=== PATIENT | male | born 1960 | race Caucasian/White ===

== ENCOUNTER → 2023-08-24 09:24 | Outpatient (REF) | payer OTHER, SELFPAY | LOC: RAD 09:24 | PROVIDERS: ATTENDING PHYSICIAN Otolaryngology; FAMILY PHYSICIAN Family Medicine | DX: K21.9 Gastro-esophageal reflux disease without esophagitis (principal); R13.12 Dysphagia, oropharyngeal phase | CPT/HCPCS: 74210 ==

== ENCOUNTER → 2023-09-19 08:04 | Outpatient (REF) | payer OTHER, SELFPAY | LOC: HWRAD 08:04 | PROVIDERS: ATTENDING PHYSICIAN Specialist; FAMILY PHYSICIAN Family Medicine | DX: R63.4 Abnormal weight loss (principal); R14.0 Abdominal distension (gaseous) | CPT/HCPCS: 74177; Q9967 ==

== ENCOUNTER → 2023-11-09 06:31 | Day surgery (SDC) | payer OTHER, SELFPAY | LOC: GI 06:31 | PROVIDERS: ATTENDING PHYSICIAN Specialist | DX: K22.70 Barrett's esophagus without dysplasia (principal); K21.00 Gastro-esophageal reflux disease with esophagitis, without bleeding; J02.9 Acute pharyngitis, unspecified | CPT/HCPCS: 43239; 88305 ==

== ENCOUNTER 2024-04-01 13:23 | Inpatient (IN) | payer OTHER, SELFPAY ==
[2024-03-30] VITALS (11 sets, daily range): BP systolic 114–181; BP diastolic 77–92; BMI 29.0; BMI 28.4
[2024-03-30 08:35] LABS: Glucose - Point of Care 91 mg/dl (70-99)
--- NOTE | 2024-03-30 08:45 | CON.NEURO ---
Consultation
Order
Date of Consultation: 03/30/24
Reason for Consult: Prehospital stroke alert called in at 8:20 AM
CC:numbness
HPI: This is a 63-year-old right-handed man who presented to [facility] on March 30, 2024 with sensory deficits. According to the patient he developed an acute left face arm and leg numbness around 7:10 AM today. The patient
states that he woke up around 7:00 earlier today and was reading a book at the symptoms onset. No reports of dysarthria, motor weakness, change in vision or headache.
ER VS: 181/92, 105
PDMP:Alprazolam 1 Mg�45 tabs filled in on 01/31/2024
CT head-mild diffuse cortical atrophy, no acute infarcts
PMH: hemochromatosis, DLP, diverticulosis hypothyroidism vitamin D deficiency, YONG, insomnia
PSH: tonsillectomy, left eye macular hole, bilateral cataract surgery
SH: ,
FH: [id number]
All:phenobarbital
ROS: Positive for left-sided numbness
General: Well developed. In no acute distress.
Cardio: Regular rate and rhythm without murmur. Extremities are without cyanosis or edema.
Neuro:
Mental Status: Alert, oriented to person, place, and date. Follows complex requests across the midline. No aphasia or hemineglect. Anxious
Cranial Nerves: . Pupils are equally round, surgical. EOMs full. Visual manzanares full to confrontation. No ptosis. No nystagmus. V1-V3 intact to light touch and pinprick bilaterally, symmetric. Face symmetric. Normal hearing AU. The palate
elevated well. SCMs and traps 5/5. Tongue midline. No dysarthria.
Motor: Normal bulk and tone. No pronator or arm drift. Strength 5/5 throughout. No clonus.
Sensory: Reduced light touch in the left face arm and leg. No extinction to DSS
Coordination: normal FFM. No dysmetria or tremor.
Gait: deferred
NIH score: I
Assessment and Plan:
I. Right thalamic syndrome. Not a candidate for IV TNK due to low NIH stroke score.
II. HTN
III. Hereditary hemochromatosis
-Neuro checks Q15 minutes. Will proceed with systemic thrombolysis if NIH score worsens.
-Telemetry monitoring.
- Plavix load
-Lipitor 40 mg QHS.
-Please check HbA1C, LDL.
-Brain MRI wo yong
-Case was discussed with ER team.
I personally reviewed all radiology and labs along with past medical records pertinent to current medical problems. Total time spent in patient care is 45 minutes.
Thank you for allowing us to participate in the care of this patient. We will continue to follow. Please do not hesitate to contact us with any questions or concerns.
Subjective/Objective
Subjective Data
Date of Service: March 30, 2024
Objective Data
Patient Allergies
phenobarbital Adverse Reaction (Verified 04/06/23 19:12)
Unknown
CVA Assessment
NIH Stroke Score
Level of Consciousness: 0 - Alert
LOC Questions: 0-Answers both correctly
LOC Commands: 0-Performs both correctly
Best Horizontal Gaze: 0-Normal
Visual Manzanares: 0=Normal, no visual loss
Facial Palsy: 0=Normal, symmetrical
Motor - Right Arm: 0=No drift 10 seconds
Motor - Left Arm: 0=No drift 10 seconds
Motor - Right Le-No drift 5 seconds
Motor - Left Le-No drift 5 seconds
Limb Ataxia: 0-Absent
Sensation: 1-Mild loss
Dysarthria: 0-Normal
Extinction and Inattention: 0-No abnormality
Tenecteplase Contraindications
IAT Contraindications: NIHSS < 6
Medications
-
Home Medications
�Medication �Instructions �Recorded
alprazolam 1 mg tablet 1.5 mg PO Q6HPRN PRN insomnia 07/18/12
cholecalciferol (vitamin D3) 50 2,000 unit PO DAILY 07/18/12
mcg (2,000 unit) tablet
levothyroxine 75 mcg tablet 75 mcg PO DAILY 07/18/12
ibuprofen 200 mg capsule (Advil 400 mg PO PRN PRN PAIN 11/01/13
Liqui-Gel)
--- NOTE | 2024-03-30 08:59 | ED.CVA ---
History of Present Illness
General
Chief Complaint: CVA/TIA Symptoms
Source: patient
Exam Limitations: none
Time Seen by Provider: 03/30/24 08:33
Onset of Stroke Symptoms
Onset of symptoms known: Yes
Date of onset of symptoms: 03/30/24
Time of onset of symptoms: 07:15
History of Present Illness
History of Present Illness:
63-year-old male sudden onset of left-sided sensory changes at about 715 this morning. Patient had woken up about 10 to 15 minutes prior in his normal state of health. Denies visual issues. [place] like his speech was possibly minimally off. No
gait issues. No obvious weakness. No headache. No history of same.
Past History
Past History
ED Past Medical History: Arrthythmia, Hypothyroidism and Other (hemachromatosis-goes every 6 weeks for blood draw); Negative Asthma, HTN, Hypercholesterolemia or NIDDM
ED Past Surgical History: Other
Social History
Tobacco: Former smoker
Alcohol: Daily (Vodka 1-2)
Personal:
Living: with family
Review of Systems
Review of Systems
All Other Systems: Not applicable
Respiratory: Reports no symptoms
Cardiac: Reports no symptoms
ABD/GI: Reports no symptoms
Phy Exam
Physical Exam
Physical Exam:
GENERAL: Alert and oriented in no apparent distress
EYE: Orbits normal.
NECK: Supple, no carotid bruit
ENT: Pharynx without erythema
CARDIAC: Regular rate and rhythm without any obvious murmurs.
LUNGS: Clear breath sounds,normal
ABDOMEN: Soft, without focal tenderness or distention
NEUROLOGICAL: Alert and oriented , cranial nerves II through XII intact. Speech normal. Extraocular muscles intact. No nystagmus. Eye confrontation normal. Slight drift of the left arm with mild pronation. Some incoordination left arm
[id number]. Some decreased sensory changes subjectively to the left arm leg and face. Slight decreased graphesthesia to the left hand.
SKIN: Warm and dry, no rash or lesion, no discoloration, skin intact.
MUSCULOSKELETAL: No edema,no deformity.Good color
PSYCH: Normal and appropriate interaction.
Scores
NIH Stroke Score
Level of Consciousness: 0 - Alert
LOC Questions: 0-Answers both correctly
LOC Commands: 0-Performs both correctly
Best Horizontal Gaze: 0-Normal
Visual Greenberg: 0=Normal, no visual loss
Facial Palsy: 0=Normal, symmetrical
Motor - Right Arm: 0=No drift 10 seconds
Motor - Left Arm: 1=Drift < 10 seconds
Motor - Right Le-No drift 5 seconds
Motor - Left Le-No drift 5 seconds
Limb Ataxia: 1-Present in one limb
Sensation: 1-Mild loss
Best Language: 0-No aphasia
Dysarthria: 0-Normal
Extinction and Inattention: 0-No abnormality
Total Score:: 3
Course
Orders/Labs/Results
Orders:
Orders
03/30/24 08:30
CT Head W/o Cont STROKE ALERT Urgent
Comment:
Reason For Exam: L sided numbness
03/30/24 08:32
Electrocardiogram (*1) Urgent
Reason for Study: Other
Other Reason for Exam: Possible Stroke
Bedside Glucose- Treatment ONCE
Cardiac Monitoring- Treatment ONCE
EKG- Treatment ONCE
IV Insert/Care/Rem.- Treatment PRN
Vital Signs As Directed
Frequency: Other
Weight As Directed
Frequency: Once
Comment: ZERO STRETCHER SCALE FOR ACCURATE WEIGHT
03/30/24 08:36
CT Head/Neck Ang STROKE ALERT Urgent
Comment:
Reason For Exam: left sided numbness started at 725am
03/30/24 09:17
Clopidogrel Bisulfate [Plavix] 300 mg PO NOW STA
03/30/24 09:25
Complete Blood Count/With Diff Urgent
Troponin I Urgent
03/30/24 09:26
Comprehensive Metabolic Panel Urgent
PTT Urgent
Prothrombin Time Urgent
03/30/24 09:52
MR Brain Without Contrast Routine
Comment:
Reason For Exam: CVA
Recent pill cam endoscopy?: No
03/30/24 11:00
0.9% Sodium Chloride 500 ml [Nss] 500 ml IV 100 mls/hr
03/30/24 11:14
Echo 2D MMode Color/Doppler Routine
Reason for Study: Thrombotic source for stroke-like sxs
03/30/24 11:37
Hemoglobin A1c [Glycohemoglobin (HgbA1c)] Routine
Lipid Profile [Cardiovascular Evaluation] Routine
03/30/24 12:00
0.9% Sodium Chloride 500 ml [Nss] 500 ml IV BOLUS
Thiamine Injection 100 mg IV DAILY
03/30/24 12:26
Admit/Transfer Patient As Directed
Co-Sign Provider:
Level of Care: Observation services
Assign to:: Telemetry
Physician / Group: jaimee
Diagnosis: CVA
Reason for Telemetry: CVA/TIA
Date to Stop Telemetry: 04/02/24
Time to Stop Telemetry: 11:00
PRN Pain Medication Management As Directed
May give lesser potent ordered pain med per pt: Yes
preference::
Protocol:: Medication orders for pain may be administered in a
manner that supports deferring to patient preference
when the pt is:
- Requesting an ordered lesser potent pain medication.
Least to most potent pain medications are defined
as: acetaminophen < NSAID < tramadol < opioids
(morphine, oxycodone, hydromorphone).
- Requesting a lesser dose of the same medication IF
ORDERED.
- Requesting a less intrusive route of administration
if both routes are prescribed by the provider (PO <
IV).
03/30/24 12:27
Code Status As Directed
Resuscitation Status: Full Code
03/30/24 13:42
Acetaminophen [Tylenol/Feverall] 650 mg RECTAL Q4HPRN PRN
Acetaminophen [Tylenol] 650 mg PO Q4HPRN PRN
03/30/24 13:42
Case Management Consult ONCE
Case Management Consult: Discharge Planning
Comment: stroke/tia
DIETARY CONSULT Routine
Reason for Consult: stroke/TIA
NEUROLOGY CONSULT Urgent
Consulting Provider: Gia Velasquez
Was physician already notified: Yes
Portainer Operator Urgent
Activity As Directed
Activity Level: As Tolerated
NIH Stroke Scale As Directed
Directions: Per protocol
Comment: every shift and with any change in condition or mental status
Neurological Checks As Directed
Frequency: q4h
Additional Instructions:: q4h x 24h upon admission to the floor, then qshift & with any change in condition
and mental status
Patient Education As Directed
Type: Stroke education packet
Comment: provide to patient and family
Pneumatic Compression Sleeves As Directed
Type: Thigh high
Swallow Screening CVA/TIA ONLY As Directed
Comment: NPO until swallowing screening completed
If patient FAILS swallow screening:: NPO, Speech Therapy consult, Aspiration Precautions
If patient PASSES swallow screening, diet:: Cholesterol Lowering
Above diet order entered?: Yes- passed screening
Vital Signs As Directed
Frequency: Per unit guidelines
Ot Eval And Treat Routine
Pt Eval And Treat Routine
Activity Level: As Tolerated
Speech Therapy Eval & Treat Routine
DX Deep Vein Thrombosis Video Routine
03/30/24 18:00
Atorvastatin [Lipitor] 40 mg PO QPM
03/31/24 06:00
Basic Metabolic Panel IN AM
Complete Blood Count/No Diff IN AM
Levothyroxine [Synthroid] 75 mcg PO DAILY@0600
03/31/24 08:00
Aspirin Chewable [Low Strength Aspirin] 81 mg PO DAILY
Clopidogrel Bisulfate [Plavix] 75 mg PO DAILY
04/02/24 11:00
DC Protocol for Telemetry ONCE
Abnormal Lab Results
03/30/24 03/30/24
09:26
MCH 31.6 H pg
(27.0-31.0)
Monocytes % 9.9 H %
(1.7-9.3)
Carbon Dioxide 21 L mmol/L
(22-30)
Glucose 101 H mg/dl
(70-99)
03/30/24 09:25
03/30/24 09:26
Vital Signs
Initial and Last Documented VS:
Initial Vital Signs
Temp Pulse Resp BP Pulse Ox
98.0 F 105 16 181/92 97
03/30/24 08:41 03/30/24 08:41 03/30/24 08:41 03/30/24 08:41 03/30/24 08:41
Last Documented Vital Signs
Temp Pulse Resp BP Pulse Ox
99.1 F 98 20 132/85 98
03/30/24 13:49 03/30/24 13:49 03/30/24 13:49 03/30/24 13:49 03/30/24 13:49
*Radiology
Radiology exam reviewed: radiology read reviewed (Negative head CT. Negative CT angio)
*Critical Care Note
Total Time (30-74mins, 75-104mins- exclusive of procedures): 35
Update Note
Update Note:
Neurology involved from the initial status. Prehospital stroke alert had been called. I noted some mild motor changes that he apparently did not have. Neurology was recalled and is currently in the room. Lengthy discussion multiple times of
thrombolytics versus holding on thrombolytics. Currently feels the disability is mild enough that it would not be worth the risk of intracranial bleed. However he will be watched closely over the next few hours.
ED Attending Note
-
Portions of this chart may have been created with voice recognition software.� Occasional wrong word or��sound alike� substitutions may have occurred due to the inherent limitations of voice recognition software.
Discharge Plan
Departure
Patient Disposition: Admit
Date of Disposition: 03/30/24
Time of Disposition: 09:21
Presentation/result/management discussed w/ accepting MD/DO: Neurology
Discharge Problem:
Acute CVA
Interventions
Interventions:
*Risk Screen - Suicide Last Done: 03/30/24 08:41
*General Assessment Last Done: 03/30/24 08:41
*Neglect/Abuse Screening Last Done: 03/30/24 08:41
ED- Fall Risk Assessment Last Done: 03/30/24 08:41
*ED COVID-19 Vaccine History Last Done: 03/30/24 08:41
*Nursing Disposition Last Done: 03/30/24 13:24
ED- Pulmonary Assessment Last Done: 03/30/24 11:07
ED- Neurological Assessment Last Done: 03/30/24 10:58
ED- Cardiac Assessment Last Done: 03/30/24 10:58
ED Swallowing Screen Last Done: 03/30/24 08:41
Discharge Date and Time
Discharge Date/Time: 03/30/24 13:25
--- NOTE | 2024-03-30 09:27 | W.PN.UPDATE ---
Update Note
Progress Note Update
Mr. Andrews was reexamined at 9:15 am. His NIH score is 3(hemisensory, dysmetria and a mild PD.
Will continue monitoring.
No systemic thrombolysis.
The patient and his family are updated and in agreement.
[2024-03-30] MEDS: PLAVIX 300 MG PO (09:31)
[2024-03-30 09:33] LABS: % Basophils 0.8 % (0-2); % Eosinophils 2.2 % (0-6); % Immature Granulocytes 0.2 % (0-0.5); % Lymphocytes 22.8 % (20.5-51.1); % Monocytes 9.9 % (1.7-9.3); % Neutrophils 64.1 % (42.2-75.2); Absolute Eosinophils 0.1 10^3/uL (0-0.7); Absolute Lymphocytes 1.2 10^3/uL (1.2-3.4); Absolute Monocytes 0.5 10^3/uL (0.1-0.6); Absolute Neutrophils 3.2 10^3/uL (1.4-6.5); Hematocrit 44.9 % (39.0-52.0); Mean Corp Hgb Conc. 35.6 g/dL (33.0-37.0); Mean Corpuscular Hgb 31.6 pg (27.0-31.0); Mean Corpuscular Volume 88.6 fL (80.0-94.0); Mean Platelet Volume 10.3 fL (7.4-10.4); Nucleated Red Blood Cells % 0 % (-); Platelet Count 206 10^3/uL (130-400); Red Blood Cell Count 5.07 10^6/uL (4.70-6.10); Red Cell Dist. Width 12.3 % (11.5-14.5)
[2024-03-30 09:43] LABS: INR 1.07; PT 13.7 Sec (11.4-14.6)
[2024-03-30 09:44] LABS: APTT 31.1 Sec (23.4-35.0)
[2024-03-30 09:52] LABS: ALT (SGPT) 27 U/L (0-50); AST (SGOT) 31 U/L (17-59); Albumin 4.4 g/dl (3.5-5.0); Alkaline Phosphatase 66 U/L (38-126); Blood Urea Nitrogen 17 mg/dl (9-20); Calcium 9.5 mg/dl (8.4-10.2); Carbon Dioxide 21 mmol/L (22-30); Chloride 104 mmol/L (98-107); Estimated Creatinine Clearance 76 ml/min; Glucose 101 mg/dl (70-99); Potassium 4.3 mmol/L (3.5-5.1); Sodium 138 mmol/L (135-145); Total Protein 6.8 g/dl (6.3-8.2); eGFR > 60.00
--- NOTE | 2024-03-30 10:02 | W.PN.UPDATE ---
Update Note
Progress Note Update
Mr. Andrews was seen an examined. His family is at bedside. He reports improvement of tongue numbness and reports no weakness in the left arm and hand. NIH is 2(hemisensory and L dysmetria).
Tele-tachycardic, regular
Plan: continue neuro checks start IVF.
[2024-03-30 10:03] LABS: Troponin I < 0.012 ng/ml
[2024-03-30] MEDS: NSS 500 IV ×4 (10:23→21:38)
--- NOTE | 2024-03-30 12:02 | HPS.HSE ---
Addendum entered and electronically signed by Jose Urias MD 03/30/24 13:44:
I saw and examined the patient.
The HOUSING ASSISTANT or PA's note was reviewed and I agree with the note.
Comment: 63-year-old male presents with left-sided facial droop and left facial, left upper extremity, and left lower extremity paresthesias.
114/80, 95, 15, 98.1 �F, 99% on room air
Gen: NAD, AAOx3.
Eyes: EOMI, PERRLA, no scleral icterus.
Neck: supple.
CV: RRR, +S1/S2, no m/r/g.
Resp: CTAB, no rales, wheezes, or rhonchi.
Abd: +BS, soft, NT, ND
Skin: No rashes.
Neuro: mild L-facial droop, decrease sensation to touch in V1-V3 distribution of the face and left foot
Psych: Normal mood and affect.
Lab Results
03/30/24 03/30/24 03/30/24
08:34 09:25 09:26
WBC 5.0
RBC 5.07
Hgb 16.0
Hct 44.9
MCV 88.6
MCH 31.6 H
MCHC 35.6
RDW 12.3
Plt Count 206
MPV 10.3
Abs Immat Gran (auto) 0.0
Absolute Neuts (auto) 3.2
Absolute Lymphs (auto) 1.2
Absolute Monos (auto) 0.5
Absolute Eos (auto) 0.1
Absolute Basos (auto) 0.0
Immature Gran % 0.2
Neutrophils % 64.1
Lymphocytes % 22.8
Monocytes % 9.9 H
Eosinophils % 2.2
Basophils % 0.8
Nucleated RBC % 0
PT 13.7
INR 1.07
APTT 31.1
Sodium 138
Potassium 4.3
Chloride 104
Carbon Dioxide 21 L
BUN 17
Creatinine 1.1
Estimated Creat Clear 76
eGFR > 60.00
Glucose 101 H
Hemoglobin A1c
Calcium 9.5
Total Bilirubin 1.0
AST 31
ALT 27
Alkaline Phosphatase 66
Troponin I < 0.012
Total Protein 6.8
Albumin 4.4
Triglycerides
Total Cholesterol
LDL Cholesterol, Calc
VLDL Cholesterol, Calc
HDL Cholesterol
POC Glucose 91
03/30/24
11:37
WBC
RBC
Hgb
Hct
MCV
MCH
MCHC
RDW
Plt Count
MPV
Abs Immat Gran (auto)
Absolute Neuts (auto)
Absolute Lymphs (auto)
Absolute Monos (auto)
Absolute Eos (auto)
Absolute Basos (auto)
Immature Gran %
Neutrophils %
Lymphocytes %
Monocytes %
Eosinophils %
Basophils %
Nucleated RBC %
PT
INR
APTT
Sodium
Potassium
Chloride
Carbon Dioxide
BUN
Creatinine
Estimated Creat Clear
eGFR
Glucose
Hemoglobin A1c 5.0
Calcium
Total Bilirubin
AST
ALT
Alkaline Phosphatase
Troponin I
Total Protein
Albumin
Triglycerides 63
Total Cholesterol 176
LDL Cholesterol, Calc 81
VLDL Cholesterol, Calc 12
HDL Cholesterol 83
POC Glucose
CTA head/neck: Normal
CT head: There are no focal or acute intracranial abnormalities. There is mild diffuse cortical atrophy.
L-sided facial droop, likely acute CVA:
-check MRI brain and echo
-cont ASA/Plavix/statin
-Monitor on telemetry
Original Note:
Family Physician
-
Family Physician: Garret Rodriguez
Chief Complaint
-
left sided numbness
History of Present Illness
63-year-old male with PMH for hypothyroidism, hemochromatosis, hypothyroidism presented to us with left sided numbness, weakness since this morning. noticed left sided facial droop. denied slurred speech. denied blurry vision, headache, dizzy.
denied chest pain, sob. denied abdominal pain,n,v,d.denied dysuria or hematuria. patient stated it feels like something stuck in his throat since he took the pills.
head CT and CTA with no acute findings. took asa this morning. patient received Plavix. admitting for further management.
Medical History
Past Medical History
Past Medical History: Reports Other
Additional Past Medical History:
colon polyp
diverticulosis
hypothyroidism
anxiety
insomnia
hemochromatosis
Past Surgical History: Reports Other
Additional Past Surgical History:
tonsillectomy
b/l cataract surgery
Social History
Tobacco: Former Smoker
Alcohol: Occasional
Drug: None
Personal:
Living: With Family
Employment: Employed
Family History
Family History: Not pertinent
Allergies / Home Medications
Allergies reflects when Allergies were last updated in [employer].
Home Medications with original date entered in [employer]
Allergy/Medication List:
Allergies
Allergy/AdvReac Type Severity Reaction Status Date / Time
phenobarbital AdvReac Unknown Verified 04/06/23 19:12
Home Medications
alprazolam 1 mg tablet 0.5 - 1.5 mg PO DAILYPRN PRN anxiety 07/18/12
levothyroxine 75 mcg tablet 75 mcg PO DAILY 07/18/12
ibuprofen 200 mg capsule (Advil Liqui-Gel) 400 mg PO DAILYPRN PRN mild pain 11/01/13
calcium 200 mg (as carbonate)-magnesium 100 mg chewable tablet (Miah-Mag) 200 tab PO DAILYPRN PRN constipation 03/30/24
cholecalciferol (vitamin D3) 10 mcg/mL (400 unit/mL) oral drops 30 mcg PO DAILYPRN PRN supplement 03/30/24
cholecalciferol (vitamin D3) 125 mcg (5,000 unit) tablet (Vitamin D3) 125 mcg PO Q48H 03/30/24
zinc sulfate 50 mg zinc (220 mg) tablet 50 mg PO DAILY 03/30/24
Review of Systems
-
Constitutional: Reports No Symptoms
EENT: Reports No Symptoms
Respiratory: Reports No Symptoms
Cardiac: Reports No Symptoms
Abdomen/GI: Reports No Symptoms
: Reports No Symptoms
Musculoskeletal: Reports No Symptoms
Skin: Reports No Symptoms
Neurological: Reports No Symptoms, Weakness and Numbness (left sided)
Endocrine: Reports No Symptoms
Hematologic/Lymphatic: Reports No Symptoms
Psych: Reports No Symptoms
Physical Exam
Vital Signs
Vital Signs
Temp Pulse Resp BP Pulse Ox
98.1 F 98 11 150/86 100
03/30/24 11:08 03/30/24 11:08 03/30/24 11:08 03/30/24 11:08 03/30/24 11:08
Physical Exam
General: Well Developed, Well Nourished and No Apparent Distress
HEENT: NormoCephalic, Moist mucous membranes and Atraumatic
Respiratory: Clear
Cardiac: S1/S2 and Regular Rhythm; No Murmur or Rub
GI: Soft, Non Tender, Non Distended and Normal Bowel Sounds; No Organomegaly
Rectal: Deferred by Provider
Musculoskeletal: No Clubbing, No Cyanosis and No Edema
Skin: No Rash
Neuro: Nonfocal/grossly intact and Facial Droop (left facial droop. left sided numbness)
Psych: Calm
Laboratory Results
-
03/30/24 09:25
03/30/24 09:26
Laboratory Results
PT 13.7 Sec (11.4-14.6) 03/30/24 09:26
INR 1.07 03/30/24 09:26
APTT 31.1 Sec (23.4-35.0) 03/30/24 09:
Total Bilirubin 1.0 mg/dl (0.2-1.3) 03/30/24 09:
AST 31 U/L (17-59) 03/30/24 09:
ALT 27 U/L (0-50) 03/30/24 09:26
Alkaline Phosphatase 66 U/L (38-126) 03/30/24 09:26
Troponin I < 0.012 ng/ml 03/30/24 09:25
Data Reviewed
-
CT Scan: Report Reviewed by me
Lab Data: Labs Reviewed by me
Impression/Plan
-
#left sided numbness, weakness r/o acute CVA
-stroke protocol
-obtain MRI and ECHO
-statin,asa,Plavix
-obtain A1c,lipid profile
-PT/OT consult
-neuro consult
-head neck CT normal
-CT head with no focal or acute intracranial abnormalities.There is mild diffuse cortical atrophy
#hypothyroidism
-levothyroxine continued
#DVT prophylaxis
-SCD
#CODE status
-full code
[2024-03-30 12:04] LABS: HDL Cholesterol 83 mg/dl; LDL Cholesterol, Calculated 81 mg/dl; Total Cholesterol 176 mg/dl (50-199); Triglyceride 63 mg/dl (10-149); Very Low Density Lipoprotein 12 mg/dl (0-30)
--- NOTE | 2024-03-30 13:50 | PTCARENOTE ---
Pt received from ED. Pt ambulated from the stretcher to the unit bed with supervision. NIH 2. Decreased sensation to left face and left upper arm. Ataxia on the left upper extremity. Pt is AAOx3. Resting in bed, feeling anxious. Order requested for
Xanax. Pt had a recent left sided oral surgery and is concerned that this is causing his symptoms. Dr Urias made aware of the pt concern. Pt waiting for a brain MRI.
--- NOTE | 2024-03-30 15:27 | PTOTSP ---
Speech Pathology
Clinical Swallow Evaluation
63M with L sided numbness admitted to r/o CVA p/w clinical s/s of at least a mildly impaired oropharyngeal swallow due to current L sided facial numbness and pain, as well as endorsement of globus sensation with regular solids and pills.
Recommend:
1. Regular textures (IDDSI 7), thin liquids (IDDSI 0)
2. Meds as tolerated, recommended whole in puree to reduce s/s of pill dysphagia
3. Safe swallowing strategies: cyclic ingestion/alternating bites and sips, opting for softer foods at this time to assist w/ chew and reduce globus sensation, slow rate, small bites
4. Aspiration and reflux precautions
5. FRUIT PRESS OPERATOR service to follow up and assess diet level tolerance given pending MRI results, as well as train safe swallowing strategies given c/o frequent globus sensation
[2024-03-30] MEDS: LIPITOR 40 MG PO (17:35)
[2024-03-30] MEDS: XANAX 1 MG PO (20:23)
[2024-03-31] VITALS (7 sets, daily range): BP systolic 118–144; BP diastolic 72–85; PULSE 80
[2024-03-31] MEDS: NSS 500 IV (03:24)
[2024-03-31] MEDS: SYNTHROID 75 MCG PO (05:33)
--- NOTE | 2024-03-31 08:12 | W.PN.HOSP.TC ---
Today's Communication/Plan
-
see bold
Assessment / Plan
Assessment / Plan
Gen: NAD, awake and alert
Eyes: EOMI, PERRLA, no scleral icterus.
Neck: supple.
CV: Remains RRR, +S1/S2, no m/r/g.
Resp: CTAB, no rales, wheezes, or rhonchi.
Abd: +BS, soft, NT, ND
Skin: No rashes.
Neuro: No L-facial droop, decreased sensation to touch in V1-V3 distribution of the face
Psych: Normal mood and affect.
CTA head/neck: Normal
CT head: There are no focal or acute intracranial abnormalities. There is mild diffuse cortical atrophy.
L-sided facial droop, likely acute CVA:
-check MRI brain and echo
-cont ASA/Plavix/statin
-Monitor on telemetry (SR, read by me)
-neuro following
Hypothyroidism: Continue Levoxyl
FULL/SCDs
Anticipated Discharge: Within 24 hours
Subjective/Interval History
-
Date of Service: March 31, 2024
Still with left facial numbness and tingling in the left hand. No further numbness in the left foot
Objective Data
-
Labs:
Laboratory Results
03/31/24
07:53
WBC Pending
Hgb Pending
Hct Pending
Plt Count Pending
Sodium Pending
Potassium Pending
Chloride Pending
Carbon Dioxide Pending
BUN Pending
Creatinine Pending
Glucose Pending
Calcium Pending
Vital Signs:
Vital Signs
Temp Pulse Resp BP Pulse Ox
97.7 F 74 20 118/74 97
03/31/24 03:40 03/31/24 03:40 03/31/24 03:40 03/31/24 03:40 03/31/24 03:40
I&O
03/30/24 03/31/24 04/01/24
06:59 06:59 06:59
Intake Total 1919
Output Total 1230 / 1230
Balance 690 / 690
[2024-03-31] MEDS: LOW STRENGTH ASPIRIN 81 MG PO (08:16)
[2024-03-31] MEDS: NSS 1000 IV (08:16)
[2024-03-31] MEDS: PLAVIX 75 MG PO (08:16)
[2024-03-31 08:29] LABS: Hematocrit 39.6 % (39.0-52.0); Hemoglobin 14.7 g/dL (13.0-18.0); Mean Corp Hgb Conc. 37.1 g/dL (33.0-37.0); Mean Corpuscular Hgb 33.2 pg (27.0-31.0); Mean Corpuscular Volume 89.4 fL (80.0-94.0); Mean Platelet Volume 10.5 fL (7.4-10.4); Platelet Count 156 10^3/uL (130-400); Red Blood Cell Count 4.43 10^6/uL (4.70-6.10); Red Cell Dist. Width 12.1 % (11.5-14.5); White Blood Cell Count 4.6 10^3/uL (4.8-10.8)
[2024-03-31 08:47] LABS: Blood Urea Nitrogen 10 mg/dl (9-20); Calcium 8.9 mg/dl (8.4-10.2); Carbon Dioxide 20 mmol/L (22-30); Chloride 109 mmol/L (98-107); Estimated Creatinine Clearance 83 ml/min; Glucose 98 mg/dl (70-99); Potassium 4.2 mmol/L (3.5-5.1); Sodium 140 mmol/L (135-145); eGFR > 60.00
--- NOTE | 2024-03-31 14:51 | W.PN.NEURO.1 ---
Today's Communication / Plan
-
.
Subjective/Objective
Subjective Data
Date of Service: March 31, 2024
Mr. Andrews states that his left lower leg and tongue numbness have resolved and the left arm/hand and facial numbness have improved. No reports of headache, change in strength. He was able to ambulate with no difficulties.
The patient has been normotensive with no therapy.
Brain MRI showed an acute/subacute R thalamic infarct, increased signal on the FLAIR and T2-weighted images in the periventricular and subcortical white matter bilaterally as well as cortical and cerebellar atrophy
LDL 81, HbA1C 5
PMH: hemochromatosis, DLP, diverticulosis hypothyroidism vitamin D deficiency, YONG, insomnia
PSH: tonsillectomy, left eye macular hole, bilateral cataract surgery
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
FH: [id number]
All:phenobarbital
ROS: Positive for left-sided numbness, neg for chest pain, palpitations, YEUNG, leg edema.
General: Well developed. In no acute distress.
Cardio: Regular rate and rhythm without murmur. Extremities are without cyanosis or edema.
Neuro:
Mental Status: Alert, oriented to person, place, and date. Follows complex requests across the midline. No aphasia or hemineglect. Anxious
Cranial Nerves: . Pupils are equally round, surgical. EOMs full. Visual manzanares full to confrontation. No ptosis. No nystagmus. V1-V3 intact to light touch and pinprick bilaterally, symmetric. Face symmetric. Normal hearing AU. The palate
elevated well. SCMs and traps 5/5. Tongue midline. No dysarthria.
Motor: Normal bulk and tone. No pronator or arm drift. Strength 5/5 throughout. No clonus.
Sensory: Reduced light touch in the left face arm and face No extinction to DSS
Coordination: normal FFM. No dysmetria or tremor.
Gait: deferred
NIH score: 1
Assessment and Plan:
I. Acute/subacute right thalamic stroke. 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
II. HTN
III. Hereditary hemochromatosis
-Telemetry monitoring.
-ASA 81mg QD lifelong
-Continue Plavix 75 mg QD for 21 days
-Lipitor 40 mg QHS.
-ua tox
-TTE
-Case was discussed with patient's family
I personally reviewed all radiology and labs along with past medical records pertinent to current medical problems. Total time spent in patient care is 35 minutes.
Thank you for allowing us to participate in the care of this patient. We will continue to follow. Please do not hesitate to contact us with any questions or concerns.
Objective Data
Vital Signs
Temp Pulse Resp BP Pulse Ox
36.7 C 85 16 124/72 96
03/31/24 08:15 03/31/24 08:15 03/31/24 08:15 03/31/24 08:15 03/31/24 08:15
Lab Results
03/31/24 07:53
03/31/24 07:53
PT 13.7 Sec (11.4-14.6) 03/30/24 09:26
INR 1.07 03/30/24 09:26
APTT 31.1 Sec (23.4-35.0) 03/30/24 09:26
Sodium 140 mmol/L (135-145) 03/31/24 07:53
Potassium 4.2 mmol/L (3.5-5.1) 03/31/24 07:53
BUN 10 mg/dl (9-20) 03/31/24 07:53
Glucose 98 mg/dl (70-99) 03/31/24 07:53
Calcium 8.9 mg/dl (8.4-10.2) 03/31/24 07:53
LDL Cholesterol, Calc 81 mg/dl 03/30/24 11:37
Patient Allergies
phenobarbital Adverse Reaction (Verified 04/06/23 19:12)
Unknown
Vital Signs and Labs
-
Vital Signs and Labs:
Vital Signs
Temp Pulse Resp BP Pulse Ox
36.7 C 85 16 124/72 96
03/31/24 08:15 03/31/24 08:15 03/31/24 08:15 03/31/24 08:15 03/31/24 08:15
Lab Results
03/31/24 07:53
03/31/24 07:53
PT 13.7 Sec (11.4-14.6) 03/30/24 09:26
INR 1.07 03/30/24 09:26
APTT 31.1 Sec (23.4-35.0) 03/30/24 09:26
Sodium 140 mmol/L (135-145) 03/31/24 07:53
Potassium 4.2 mmol/L (3.5-5.1) 03/31/24 07:53
BUN 10 mg/dl (9-20) 03/31/24 07:53
Glucose 98 mg/dl (70-99) 03/31/24 07:53
Calcium 8.9 mg/dl (8.4-10.2) 03/31/24 07:53
LDL Cholesterol, Calc 81 mg/dl 03/30/24 11:37
Medications
-
Medications:
Generic Name Dose Route Start Last Admin
Trade Name Freq PRN Reason Stop Dose Admin
Acetaminophen 650 mg 03/30/24 13:42
Acetaminophen 650 Mg Rectal Suppository RECTAL 04/27/24 13:41
Q4HPRN PRN
CRUZ, mild pain, or temp >100.4F
Acetaminophen 650 mg 03/30/24 13:42
Acetaminophen 325 Mg Tablet PO 04/27/24 13:41
Q4HPRN PRN
CRUZ, mild pain, or temp >100.4F
Alprazolam 1 mg 03/30/24 14:06 03/30/24 20:23
Alprazolam 1 Mg Tablet PO 04/27/24 14:05 1 mg
DAILYPRN PRN Administration
anxiety
Aspirin 81 mg 03/31/24 08:00 03/31/24 08:16
Aspirin 81 Mg Chewable Tablet PO 04/28/24 07:59 81 mg
DAILY MOISÉS Administration
Atorvastatin Calcium 40 mg 03/30/24 18:00 03/30/24 17:35
Atorvastatin (Lipitor) 40 Mg Tablet PO 04/27/24 17:59 40 mg
QPM MOISÉS Administration
Clopidogrel Bisulfate 75 mg 03/31/24 08:00 03/31/24 08:16
Clopidogrel 75 Mg Tablet PO 04/28/24 07:59 75 mg
DAILY MOISÉS Administration
Levothyroxine Sodium 75 mcg 03/31/24 06:00 03/31/24 05:33
Levothyroxine 75 Mcg Tablet PO 04/28/24 05:59 75 mcg
DAILY@0600 MOISÉS Administration
Home Medications
-
Home Medications
alprazolam 1 mg tablet 0.5 - 1.5 mg PO DAILYPRN PRN anxiety 07/18/12
levothyroxine 75 mcg tablet 75 mcg PO DAILY Thyroid 07/18/12
ibuprofen 200 mg capsule (Advil Liqui-Gel) 400 mg PO DAILYPRN PRN mild pain 11/01/13
calcium 200 mg (as carbonate)-magnesium 100 mg chewable tablet (Miah-Mag) 200 tab PO DAILYPRN PRN constipation 03/30/24
cholecalciferol (vitamin D3) 10 mcg/mL (400 unit/mL) oral drops 30 mcg PO DAILYPRN PRN supplement 03/30/24
cholecalciferol (vitamin D3) 125 mcg (5,000 unit) tablet (Vitamin D3) 125 mcg PO Q48H Supplement 03/30/24
zinc sulfate 50 mg zinc (220 mg) tablet 50 mg PO DAILY Supplement 03/30/24
--- NOTE | 2024-03-31 15:22 | PTOTSP ---
ST Acute Care Evaluation & Follow-Up
Cognitive Linguistic Evaluation: Pt presents with speech, language, and cognitive linguistic function that are within functional limits for his age and education. No skilled speech or language tx indicated at this time.
Dysphagia Tx: Pt presents with oropharyngeal parameters that are WFL. No overt s/s of penetration or aspiration noted at bedside. 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 Education provided.
Recommendations:
- Continue with regular solids, thin liquids, meds as tolerated (consider whole in puree).
- General aspiration precautions and reflux precautions.
- No skilled HARDNESS TESTER services deemed warranted at this time for speech, language, cognitive function, or swallowing.
- F/u with GI as OP for esophageal dysfunction and intolerance of PPI previously RX.
[2024-03-31] MEDS: LIPITOR 40 MG PO (17:07)
[2024-03-31 18:24] LABS: Amphetamines Negative (Negative); Barbiturates Negative (Negative)
[2024-03-31 18:25] LABS: Benzodiazepines Positive (Negative); Buprenorphine Negative (Negative); Cocaine Negative (Negative); Marijuana Negative (Negative); Methadone Negative (Negative); Methamphetamines Negative (Negative); Opiates Negative (Negative); Phencyclidine Negative (Negative); Tricyclic Antidepressants Negative (Negative)
[2024-03-31 18:37] LABS: Fentanyl, Urine Negative (Negative)
[2024-03-31] MEDS: XANAX 1 MG PO (21:57)
[2024-04-01 03:37] VITALS: BP 122/83
[2024-04-01] MEDS: SYNTHROID 75 MCG PO (06:12)
[2024-04-01 08:17] VITALS: BP 146/84
[2024-04-01] MEDS: PLAVIX 75 MG PO (08:40)
[2024-04-01] MEDS: LOW STRENGTH ASPIRIN 81 MG PO (08:40)
--- NOTE | 2024-04-01 09:35 | W.PN.HOSP.TC ---
Addendum entered and electronically signed by Jose Urias MD 04/01/24 15:01:
Total time spent on d/c = 31 min. This included today's physical exam, progress note, review of laboratory and diagnostic data, preparation of discharge documents and prescriptions, and discussions about the pt's hospital course and discharge plan
with the patient and other medical nurse involved in the patient's care.
Original Note:
Today's Communication/Plan
-
d/c after echo
Assessment / Plan
Assessment / Plan
Gen: NAD, awake and alert
Eyes: EOMI, PERRLA, no scleral icterus.
Neck: supple.
CV: continues to remain RRR, +S1/S2, no m/r/g.
Resp: remains CTAB, no rales, wheezes, or rhonchi.
Abd: +BS, soft, NT, ND
Skin: No rashes.
Neuro: remains No L-facial droop, decreased sensation to touch in V1-V3 distribution of the face
Psych: Normal mood and affect.
CTA head/neck: Normal
CT head: There are no focal or acute intracranial abnormalities. There is mild diffuse cortical atrophy.
MRI brain: 12 mm subacute nonhemorrhagic right thalamic infarct
Acute R-thalamic CVA:
-cont ASA, plavix x 21 days, statin
-check echo
-neuro following
Hypothyroidism: Continue Levoxyl
FULL/SCDs
Anticipated Discharge: Today
Subjective/Interval History
-
Date of Service: April 01, 2024
No new complaints.
Objective Data
-
Vital Signs:
Vital Signs
Temp Pulse Resp BP Pulse Ox
98 F 80 18 146/84 99
04/01/24 08:17 04/01/24 08:17 04/01/24 08:17 04/01/24 08:17 09/30/24 08:17
I&O
03/31/24 04/01/24 04/02/24
06:59 06:59 06:59
Intake Total 1919 / 1919 560 / 560
Output Total 1230 / 1230
Balance 690 / 690 560 / 560
--- NOTE | 2024-04-01 11:17 | W.PN.NEURO.1 ---
Documented by User: Krista Patino NP 04/01/24 11:35
Today's Communication / Plan
-
.
Neuro Assessment/Plan
Assessment
This is a 63-year-old RH male who presented to on 03/30/24 with report of left face, arm, and leg paresthesias. BP on arrival 181/92. CT head and CTA head/neck were negative for any acute abnormalities. He was not a candidate for IV TNK/IAT due to
low NIHSS and no LVO. He was loaded with Plavix in the ER.
-CTA head/neck 03/30/24: Normal.
-MRI brain 03/31/24: 12 mm subacute nonhemorrhagic right thalamic infarct. There is mild cortical and cerebellar atrophy with minimal nonspecific white matter changes.
I. Acute/subacute right thalamic stroke. 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
II. HTN
III. Hereditary hemochromatosis
Plan
Continue DAPT with aspirin 81mg and Plavix 75mg daily for 21 days. After 21 days, discontinue Plavix and continue aspirin 81mg daily only, indefinitely.
-Goal normotension.
-Monitor on telemetry. TTE pending.
-LDL goal <70. LDL is 81. Continue newly initiated atorvastatin 40mg daily.
-Goal normoglycemia, hbA1c is 5.0.
-NIHSS and neurological checks per unit guidelines.
-Provide patient with a stroke education packet.
-PT/OT/ST evaluations.
-DVT prophylaxis.
-Patient should follow-up with Neurology as an outpatient in about 4 weeks, may see the [facility] [employer] [facility] or one of the physicians.
Subjective/Objective
Subjective Data
Date of Service: April 01, 2024
No acute events overnight. Patient reports that he still has mild numbness in his left face and left forearm/hand but his LLE and tongue feel back to baseline. He denies any headache, dizziness, vision changes, speech/swallow difficulty, weakness,
chest pain, palpitations, and shortness of breath.
Objective Data
Vital Signs
Temp Pulse Resp BP Pulse Ox
98 F 80 18 146/84 99
04/01/24 08:17 04/01/24 08:17 04/01/24 08:17 04/01/24 08:17 04/01/24 08:17
Lab Results
03/31/24 07:53
03/31/24 07:53
PT 13.7 Sec (11.4-14.6) 03/30/24 09:26
INR 1.07 03/30/24 09:26
APTT 31.1 Sec (23.4-35.0) 03/30/24 09:26
Sodium 140 mmol/L (135-145) 03/31/24 07:53
Potassium 4.2 mmol/L (3.5-5.1) 03/31/24 07:53
BUN 10 mg/dl (9-20) 03/31/24 07:53
Glucose 98 mg/dl (70-99) 03/31/24 07:53
Calcium 8.9 mg/dl (8.4-10.2) 03/31/24 07:53
LDL Cholesterol, Calc 81 mg/dl 03/30/24 11:37
Ur Buprenorphine Negative (Negative) 03/31/24 17:52
Patient Allergies
phenobarbital Adverse Reaction (Verified 04/06/23 19:12)
Unknown
LDL Level: >70, statin ordered
Review of Systems
-
History Source: Patient
EENT: Negative Blurry Vision, Decreased Vision or Swallowing Difficulty
Respiratory: Negative Cough or Trouble Breathing
Cardiac: Negative Chest Pain or Palpitations
Abdomen/GI: Negative Nausea
Neuro: Numbness; Negative Dizzy, Headache, Weakness, Ataxia, Tremors or Speech Problem
Modified Newton Score (MRS)
-
Modified Anish Scale (mRS): No significant disability. Able to carry out usual activities.
Score: 1
Data Reviewed
-
CT-A: Report Reviewed and Image Reviewed
CT Head: Report Reviewed and Image Reviewed
MRI Head: Report Reviewed and Image Reviewed
Echocardiogram: Pending
Labs: Report Reviewed
Lipid Profile: Report Reviewed
HgbA1C: Report Reviewed
Reviewed with: Physician, Patient and Family
Medications
-
Active Medications
Generic Name Dose Route Start Last Admin
Trade Name Freq PRN Reason Stop Dose Admin
Acetaminophen 650 mg 03/30/24 13:42
Acetaminophen 650 Mg Rectal Suppository RECTAL 04/27/24 13:41
Q4HPRN PRN
CRUZ, mild pain, or temp >100.4F
Acetaminophen 650 mg 03/30/24 13:42
Acetaminophen 325 Mg Tablet PO 04/27/24 13:41
Q4HPRN PRN
CRUZ, mild pain, or temp >100.4F
Alprazolam 1 mg 03/30/24 14:06 03/31/24 21:57
Alprazolam 1 Mg Tablet PO 04/27/24 14:05 1 mg
DAILYPRN PRN Administration
anxiety
Aspirin 81 mg 03/31/24 08:00 04/01/24 08:40
Aspirin 81 Mg Chewable Tablet PO 04/28/24 07:59 81 mg
DAILY MOISÉS Administration
Atorvastatin Calcium 40 mg 03/30/24 18:00 03/31/24 17:07
Atorvastatin (Lipitor) 40 Mg Tablet PO 04/27/24 17:59 40 mg
QPM MOISÉS Administration
Clopidogrel Bisulfate 75 mg 03/31/24 08:00 04/01/24 08:40
Clopidogrel 75 Mg Tablet PO 04/28/24 07:59 75 mg
DAILY MOISÉS Administration
Levothyroxine Sodium 75 mcg 03/31/24 06:00 04/01/24 06:12
Levothyroxine 75 Mcg Tablet PO 04/28/24 05:59 75 mcg
DAILY@0600 MOISÉS Administration
Sodium Chloride 0 flush 04/01/24 10:00
Sodium Chloride 0.9% (Flush) Syringe IV 04/29/24 09:59
PER PROTOCOL MOISÉS
Home Medications
�Medication �Instructions �Recorded
alprazolam 1 mg tablet 0.5 - 1.5 mg PO DAILYPRN PRN 07/18/12
anxiety
levothyroxine 75 mcg tablet 75 mcg PO DAILY Thyroid 07/18/12
ibuprofen 200 mg capsule (Advil 400 mg PO DAILYPRN PRN mild pain 11/01/13
Liqui-Gel)
calcium 200 mg (as 200 tab PO DAILYPRN PRN 03/30/24
carbonate)-magnesium 100 mg constipation
chewable tablet (Miah-Mag)
cholecalciferol (vitamin D3) 10 30 mcg PO DAILYPRN PRN supplement 03/30/24
mcg/mL (400 unit/mL) oral drops
cholecalciferol (vitamin D3) 125 125 mcg PO Q48H Supplement 03/30/24
mcg (5,000 unit) tablet (Vitamin
D3)
zinc sulfate 50 mg zinc (220 mg) 50 mg PO DAILY Supplement 03/30/24
tablet
NIH Stroke Score
Subsequent NIH Scale
Date of Subsequent NIH Scale: 04/01/24
Time of Subsequent NIH Scale: 10:45
NIH Stroke Score
Level of Consciousness: 0 - Alert
LOC Questions: 0-Answers both correctly
LOC Commands: 0-Performs both correctly
Best Horizontal Gaze: 0-Normal
Visual Greenberg: 0=Normal, no visual loss
Facial Palsy: 0=Normal, symmetrical
Motor - Right Arm: 0=No drift 10 seconds
Motor - Left Arm: 1=Drift < 10 seconds
Motor - Right Le-No drift 5 seconds
Motor - Left Le-No drift 5 seconds
Limb Ataxia: 0-Absent
Sensation: 1-Mild loss
Best Language: 0-No aphasia
Dysarthria: 0-Normal
Extinction and Inattention: 0-No abnormality
Total Score:: 2
Modified Anish (mRS) Score
Modified Anish Scale (mRS): No significant disability. Able to carry out usual activities.
Score: 1

Documented by User: Crow Huggins MD 04/01/24 16:18
Today's Communication / Plan
-
63-year-old male who was admitted chief complaint of with numbness of left face, arm, and leg paresthesias. BP on arrival 181/92. CT head and CTA head/neck revealed no acute lesions and no stenosis
MRI of the brain revealed right thalamic lacunar infarct
PLAN: Dual antiplatelet therapy Strict blood pressure control. Continue Lipitor
Modified Newton Score (MRS)
-
Score: 1
NIH Stroke Score
NIH Stroke Score
Total Score:: 2
Modified Anish (mRS) Score
Score: 1
[2024-04-01 11:45] VITALS: BP 143/86
--- NOTE | 2024-04-01 15:01 | W.DCSUMMARY ---
Discharge Summary
Discharge Data
Date of Admission: 04/01/24
Date of Discharge: 04/01/24
-
Pending Results: No
Hospital Course
Primary diagnoses:
Acute right thalamic cerebrovascular accident
Secondary diagnoses:
Hypothyroidism
Consultants:
Neurology
Imaging:
CTA head/neck: Normal
CT head: There are no focal or acute intracranial abnormalities. There is mild diffuse cortical atrophy.
MRI brain: 12 mm subacute nonhemorrhagic right thalamic infarct
Echo: Normal LV size and function with no regional wall motion abnormality.
LVEF is 55-60% by visual estimation.
Mild concentric LVH. Normal diastolic function.
Normal right ventricular size and function.
No significant valvular disease.
Estimated pulmonary artery pressure of 15 mmHg assuming a right atrial pressure
of 3 mmHg.
Compared to prior from September 07, 2012, no significant change.
Hospital course: 63-year-old male who presented with left-sided facial droop and left facial, left upper extremity, and left lower extremity paresthesias send in the H&P done on admission. Imaging above. The patient was placed on
aspirin/Plavix/statin. MRI of the brain showed a 12 mm subacute nonhemorrhagic right thalamic infarct. Echocardiogram was unremarkable. Patient will need to stay on aspirin indefinitely. He will continue Plavix to complete 21 days. He is being
discharged in medically stable condition.
Discharge Plan
-
Patient Disposition: Home (Routine Discharge)
Discharge Diagnosis/Procedures: Acute right thalamic cerebrovascular accident
Condition: Good
Diet: Low Cholesterol and Other diet
Additional Diets: Heart healthy
Activity: As tolerated
Driving Restrictions: As prior to admission
Referrals:
Gia Velasquez MD [Active] - in four to six weeks
Garret Rodriguez DO [Family Provider] - in less than 1 week
Prescriptions:
New
atorvastatin 40 mg Tablet
40 mg PO QPM Qty: 30 0RF
clopidogrel 75 mg Tablet
75 mg PO DAILY Qty: 18 0RF
aspirin 81 mg Tablet,Chewable
81 mg PO DAILY Qty: 1 0RF
Continued
alprazolam 1 MG tablet
0.5 - 1.5 mg PO DAILYPRN PRN (Reason: anxiety)
Patient Comments:
03/30/24: last filled 01/31/24 for 45 tablets for 30 days.
levothyroxine 75 MCG tablet
75 mcg PO DAILY
cholecalciferol (vitamin D3) 10 mcg/mL (400 unit/mL) Drops
30 mcg PO DAILYPRN PRN (Reason: supplement)
cholecalciferol (vitamin D3) [Vitamin D3] 125 mcg (5,000 unit) Tablet
125 mcg PO Q48H
Miah-Mag 200 mg calcium- 100 mg Tablet,Chewable
200 tab PO DAILYPRN PRN (Reason: constipation)
Patient Comments:
03/30/24: Usually takes every other day, may do every day if needed.
Discontinued
ibuprofen [Advil Liqui-Gel] 200 MG capsule
400 mg PO DAILYPRN PRN (Reason: mild pain)
zinc sulfate 50 mg zinc (220 mg) Tablet
50 mg PO DAILY
Discharge Orders:
Discharge Patient (As Directed); Ordered 04/01/24
Ordered By: Jose Urias
Discharge Date and Time
Print Language: BELGIAN
--- NOTE | 2024-04-01 15:48 | CM ---
Patient seen bedside with family, initial assessment completed. Patient resides with and daughter in a multiple level home, one step to enter. Patient denies use of DME at home, denies VN or SNF. Patient confirms PCP Garret Rodriguez, pharmacy
[facility]. Patient denies any insecurities at home. Patient for discharge, no needs upon discharge. CM will continue to follow for all discharge planning needs.
Plan; home with family, no needs.
--- NOTE | 2024-04-01 16:22 | PTCARENOTE ---
pt was received from previous nurse, resting comfortably in bed with daughter and spouse at bedside. pt did not have any behavioral/verbal indicators of discomfort or pain. assessments remain the same. pt was able to ambulate without any
difficulties. pt's bedside table, call douglas, television remote and telephone remain within reach
== END 2024-04-01 17:27 | disposition home or self-care (01) | DRG 66 ==
LOC: 4 EAST ACU 13:23
PROVIDERS: Registered Nurse; ADMITTING PHYSICIAN Internal Medicine; CONSULT PHYSICIAN Psychiatry & Neurology Neurology; EMERGENCY PHYSICIAN Emergency Medicine; FAMILY PHYSICIAN Family Medicine
DX: I63.9 Cerebral infarction, unspecified (principal); I10 Essential (primary) hypertension; E03.9 Hypothyroidism, unspecified; E11.9 Type 2 diabetes mellitus without complications; E78.00 Pure hypercholesterolemia, unspecified; E83.110 Hereditary hemochromatosis; F41.9 Anxiety disorder, unspecified; G47.00 Insomnia, unspecified; K59.00 Constipation, unspecified; R29.810 Facial weakness; R20.2 Paresthesia of skin; Z79.890 Hormone replacement therapy; Z79.899 Other long term (current) drug therapy; Z87.891 Personal history of nicotine dependence; Z87.19 Personal history of other diseases of the digestive system; Z86.010 Personal history of colon polyps; Z88.8 Allergy status to other drugs, medicaments and biological substances
CPT/HCPCS: 70450; 70496; 70498; 70551; 80048; 80053; 80061; 80306; 80307; 82962; 83036; 84484; 85025; 85027; 85610; 85730; 92523; 92526; 92610; 93005; 93306; 97161; 97166; 99291; Q9967

== ENCOUNTER 2024-05-31 11:11 | Outpatient (RCR) | payer OTHER, SELFPAY | END 2024-05-31 23:59 | disposition home or self-care (01) | LOC: RPT 11:11 | PROVIDERS: ATTENDING PHYSICIAN Nurse Practitioner Adult Health; FAMILY PHYSICIAN Family Medicine | DX: I69.328 Other speech and language deficits following cerebral infarction (principal); I69.392 Facial weakness following cerebral infarction; Z73.6 Limitation of activities due to disability; R20.2 Paresthesia of skin; R20.0 Anesthesia of skin | CPT/HCPCS: 92523; 97110; 97112; 97162; 97167; 97530 ==

== ENCOUNTER 2024-07-01 06:54 | Day surgery (SDC) | payer OTHER, SELFPAY ==
--- NOTE | 2024-07-01 08:03 | ITS.CL.IMPLP ---
Genetic Physician - Implant Loop
Implant Loop
Procedure Report:
Date of Procedure: July 01, 2024
Primary Care Provider: Dr. Garret Rodriguez
Primary maintenance representative: Dr. Adria Simpson
Procedure: Insertable Loop Recorder Implantation
Indication:
Cryptogenic CVA
Procedure:
The patient was brought to the procedure area in a fasting state. The anterior chest was prepped and draped in standard sterile fashion. The fourth intercostal space along the left sternal border was identified and this area was anesthetized with 10
mL of 1% lidocaine. After gathering the skin in this area, a small punch incision was made at approx intercostal space 4-5 at left costo-sternal junction using the provided scalpel/punch tool. The loop recorder was loaded into the tunneling device.
A tunnel was created in the subcutaneous tissue at a 45� angle along the coronal plane away from the sternum and towards the left flank. The tunneling device was inverted and the plunger was depressed, inserting the loop recorder into the
subcutaneous space. The tunneling device was removed. Manual pressure provide hemostasis. Adequate signal was confirmed. The skin was closed with steri-strips. The estimated blood loss was < 1 cc. A clean dressing was placed over the wound.
There were no complications.
Implant:
[employer] Reveal LINQ II
Conclusion: Uncomplicated implantation of loop recorder.
Recommendation: Routine ILR care.
Copy:
Dr. Garret Rodriguez
Dr. Adria Simpson
[2024-07-01 08:10] VITALS: BMI 32.1
== END 2024-07-01 08:30 | disposition home or self-care (01) ==
LOC: CATH 06:54
PROVIDERS: ATTENDING PHYSICIAN Internal Medicine Cardiovascular Disease; FAMILY PHYSICIAN Family Medicine; OTHER PHYSICIAN Internal Medicine Cardiovascular Disease
DX: Z09 Encounter for follow-up examination after completed treatment for conditions other than malignant neoplasm (principal); Z86.73 Personal history of transient ischemic attack (TIA), and cerebral infarction without residual deficits; Z79.82 Long term (current) use of aspirin; Z79.890 Hormone replacement therapy; Z79.899 Other long term (current) drug therapy
CPT/HCPCS: 33285; C1764

== ENCOUNTER 2024-07-02 15:15 | Outpatient (RCR) | payer OTHER, SELFPAY | END 2024-07-02 23:59 | disposition home or self-care (01) | LOC: RPT 15:15 | PROVIDERS: ATTENDING PHYSICIAN Nurse Practitioner Adult Health; FAMILY PHYSICIAN Family Medicine | DX: I69.328 Other speech and language deficits following cerebral infarction (principal); I69.392 Facial weakness following cerebral infarction; Z73.6 Limitation of activities due to disability; R20.2 Paresthesia of skin; R20.0 Anesthesia of skin | CPT/HCPCS: 97110; 97112 ==

== ENCOUNTER → 2024-07-19 12:50 | Outpatient (REF) | payer OTHER, SELFPAY ==
--- NOTE | 2024-07-19 14:52 | PTCARENOTE ---
Bubble study performed with [place] infectious disease technician.
== END ==
LOC: RCS 12:50
PROVIDERS: ATTENDING PHYSICIAN Internal Medicine Cardiovascular Disease; FAMILY PHYSICIAN Family Medicine
DX: I63.9 Cerebral infarction, unspecified (principal)
CPT/HCPCS: 93307

== ENCOUNTER 2024-08-08 06:54 | Day surgery (SDC) | payer OTHER, SELFPAY | END 2024-08-08 10:33 | disposition home or self-care (01) | LOC: CATH 06:54 | PROVIDERS: ATTENDING PHYSICIAN Nuclear Medicine Nuclear Cardiology; FAMILY PHYSICIAN Family Medicine; OTHER PHYSICIAN Internal Medicine Cardiovascular Disease | DX: I08.3 Combined rheumatic disorders of mitral, aortic and tricuspid valves (principal); Z86.73 Personal history of transient ischemic attack (TIA), and cerebral infarction without residual deficits; I70.0 Atherosclerosis of aorta | CPT/HCPCS: 93312; 93320; 93325 ==

== ENCOUNTER 2024-11-06 06:26 | Day surgery (SDC) | payer OTHER, SELFPAY | END 2024-11-06 12:36 | disposition home or self-care (01) | LOC: GI 06:26 | PROVIDERS: ATTENDING PHYSICIAN Specialist | DX: Z12.11 Encounter for screening for malignant neoplasm of colon (principal); K57.30 Diverticulosis of large intestine without perforation or abscess without bleeding; K22.70 Barrett's esophagus without dysplasia; R13.10 Dysphagia, unspecified; Z86.0101 Personal history of adenomatous and serrated colon polyps | CPT/HCPCS: 43239; G0105; 88305 ==